=== PATIENT | male | born 1990 ===

== ENCOUNTER 2017-01-09 12:39 | Emergency (ER) | payer MEDICARE, OTHER ==
[2017-01-09 13:00] VITALS: BP 131/80; PULSE 83; RESP 16; TEMP 98.7; O2SAT 97
[2017-01-09] MEDS ORDERED: Tmp-Smz 800 mg-160 mg DS Tab PO STA (13:05)
[2017-01-09] MEDS ORDERED: Bacitracin 500 Units/gm Oint Foilpak UD TOP ONE (13:05)
[2017-01-09] MEDS ORDERED: Bacitracin 500 Units/gm Oint Foilpak UD ONE (13:07)
--- NOTE | 2017-01-09 13:08 | C.PDOC ---
History Of Present Illness 26 y/o male presents to ED with c/o pain and swelling to the right thumb for 2 days. Denies fever, chills, new numbness or weakness, injury, trauma, or other complaints. Time Seen by Provider: 01/09/17 12:55 Chief Complaint (Nursing): Abnormal Skin Integrity History Per: Patient History/Exam Limitations: no limitations Onset/Duration Of Symptoms: Days (2) Current Symptoms Are (Timing): Still Present Location Of Injury: Right: Hand Quality Of Symptoms: Painful, Swollen. denies: Draining Recent travel outside of the [place]: No Past Medical History Reviewed: Historical Data, Nursing Documentation, Vital Signs Vital Signs: Last Vital Signs Temp 98.7 F 01/09/17 12:46 Pulse 83 01/09/17 12:46 Resp 16 01/09/17 12:46 BP 131/80 01/09/17 12:46 Pulse Ox 97 01/09/17 13:42 Family History: States: Unknown Family Hx - Social History Hx Alcohol Use: No Hx Substance Use: No - Immunization History Hx Tetanus Toxoid Vaccination: No Hx Influenza Vaccination: No Hx Pneumococcal Vaccination: Yes Review Of Systems Except As Marked, All Systems Reviewed And Found Negative. Constitutional: Negative for: Fever, Chills Musculoskeletal: Negative for: Hand Pain Skin: Positive for: Lesions (redness and pain near right thumb nail) Neurological: Negative for: Weakness, Numbness Physical Exam - Physical Exam Appears: Non-toxic, No Acute Distress Skin: Normal Color, Warm, Dry Head: Atraumatic, Normacephalic Extremity: Normal ROM, No Tenderness, Capillary Refill (< 2 sec.), No Deformity , Other (erythema, fluctuance, swelling, tenderness to lateral right thumb nail border ) Pulses: Left Radial: Normal, Right Radial: Normal Neurological/Psych: Oriented x3, Normal Speech, Normal Cognition, Normal Motor, Normal Sensation ED Course And Treatment O2 Sat by Pulse Oximetry: 97 (RA) Pulse Ox Interpretation: Normal Medical Decision Making Medical Decision Making: Progress: I&D: Needle aspiration, pus drained, culture collected and sent to lab. Bacitracin applied and dressing placed. Advised follow up with PMD within 1-2 days and to take antibiotics as directed. Disposition Counseled Patient/Family Regarding: Need For Followup, Rx Given - Disposition Referrals: Adria Kilpatrick MD [Staff Provider] - Disposition: HOME/ ROUTINE Disposition Time: 13:39 Condition: STABLE Additional Instructions: Please give antibiotic twice a day keep area clean and dry follow up with your doctor in few days for wound check Prescriptions: Sulfamethoxazole/Trimethoprim [Bactrim DS 800 mg-160 mg] 1 tab PO BID #14 tab Instructions: Paronychia (ED) - POA Present On Arrival: None - Clinical Impression Clinical Impression: Paronychia - PA / [employer] / Resident Statement MD/DO has reviewed & agrees with the documentation as recorded. - Scribe Statement The provider has reviewed the documentation as recorded by the Scribe Toi Mata All medical record entries made by the Dino were at my direction and personally dictated by me. I have reviewed the chart and agree that the record accurately reflects my personal performance of the history, physical exam, medical decision making, and the department course for this patient. I have also personally directed, reviewed, and agree with the discharge instructions and disposition.
== END 2017-01-09 13:47 | disposition home or self-care (01) ==
LOC: C.ER 12:39
DX: L03.011 Cellulitis of right finger (principal); B95.62 Methicillin resistant Staphylococcus aureus infection as the cause of diseases classified elsewhere

== ENCOUNTER 2017-09-02 11:21 | Emergency (ER) | payer MEDICARE, OTHER ==
[2017-09-02 11:43] VITALS: RESP 18
--- NOTE | 2017-09-02 12:43 | C.PDOC ---
History Of Present Illness 27 y/o male with history of mental challenged brought to ED by mother with complaints of right foot swelling since yesterday. As per mother patient told her he was injured while playing basketball and was noted to be limping today which prompted visit to ED. As per mother patient denies other injury, numbness or any other complaint at this time. Time Seen by Provider: 09/02/17 11:51 Chief Complaint (Nursing): Lower Extremity Problem/Injury History Per: Family History/Exam Limitations: physical impairment Onset/Duration Of Symptoms: Days Current Symptoms Are (Timing): Still Present - Ankle/Foot Description Of Injury: Twisted Past Medical History Reviewed: Historical Data, Nursing Documentation, Vital Signs Vital Signs: Last Vital Signs Temp 99 F 09/02/17 13:00 Pulse 77 09/02/17 13:00 Resp 18 09/02/17 13:00 BP 93/57 L 09/02/17 13:00 Pulse Ox 99 09/02/17 14:09 - Medical History PMH: No Chronic Diseases Surgical History: No Surg Hx Family History: States: No Known Family Hx - Social History Hx Alcohol Use: No Hx Substance Use: No - Immunization History Hx Tetanus Toxoid Vaccination: No Hx Influenza Vaccination: No Hx Pneumococcal Vaccination: Yes Review Of Systems Eyes: Negative for: Vision Change Gastrointestinal: Negative for: Vomiting Musculoskeletal: Positive for: Foot Pain Skin: Negative for: Rash Neurological: Negative for: Weakness, Numbness Physical Exam - Physical Exam Appears: Non-toxic, No Acute Distress Skin: Normal Color, Warm, Dry, No Diaphoretic, No Pale, No Rash Head: Atraumatic, Normacephalic Eye(s): bilateral: Normal Inspection Neck: Normal ROM, Supple Chest: Symmetrical Extremity: Normal ROM, Tenderness (nonfocal tenderness to right ankle and forefoot), No Calf Tenderness, No Deformity, Swelling (Mild swelling to right lateral ankle) Extremity: Bilateral: Normal ROM Pulses: Left Dorsalis Pedis: Normal, Right Dorsalis Pedis: Normal Neurological/Psych: Oriented x3, Normal Motor, Normal Sensation ED Course And Treatment O2 Sat by Pulse Oximetry: 99 (RA) Pulse Ox Interpretation: Normal - Other Rad Right foot X-Ray: Viewed By Me, Read By Radiologist Interpretation: PROCEDURE: Right Foot Radiographs. HISTORY: pain and swelling s.p twisting injury. COMPARISON: None. FINDINGS: BONES: No cortical fracture. A 1 x 2.4 mm hyperdensity projects within the plantar soft tissues just medial to the 4th metatarsal head. A radiopaque foreign body is suspect. A piece broken needle is 1 consideration. Clinical correlation needed. Os peroneum noted. JOINTS: Normal. SOFT TISSUES: Soft tissue swelling medial mid and hindfoot region most notably is also some dorsal and plantar soft tissue swelling over the metatarsals. OTHER FINDINGS: None. IMPRESSION: No fracture appreciated. Soft tissue swelling as above. Plantar soft tissue foreign body -piece of broken needle 1 consideration. Correlation with history needed Medical Decision Making Medical Decision Making: Impression: Right ankle and foot injury Plan: Right foot/ankle xray Xrays viewed by me showing no acute fracture or dislocation. Mustapha bandage applied by RN. Re-Eval: Patient remained well and in no distress. Discussed results with patient and caregiver. recommend rest, ice to area and ibuprofen. Disposition Counseled Patient/Family Regarding: Diagnosis, Need For Followup, Rx Given - Disposition Referrals: Lara Schofield MD [Staff Provider] - Disposition: HOME/ ROUTINE Disposition Time: 12:49 Condition: GOOD Additional Instructions: Your xray was normal, no fracture. Please apply ice to area 15 minutes three times a day. Take Tylenol or Motrin as needed for pain every 6 hours, with food to not upset stomach. Follow up with orthopedic if pain persists over one week. Instructions: Ankle Sprain Forms: [facility] (Bulgarian) - POA Present On Arrival: None - Clinical Impression Clinical Impression: Ankle sprain - PA / CAND[employer] P[employer]ER / Resident Statement MD/DO has reviewed & agrees with the documentation as recorded. - Scribe Statement The provider has reviewed the documentation as recorded by the Dino Valdovinos All medical record entries made by the Dino were at my direction and personally dictated by me. I have reviewed the chart and agree that the record accurately reflects my personal performance of the history, physical exam, medical decision making, and the department course for this patient. I have also personally directed, reviewed, and agree with the discharge instructions and disposition.
[2017-09-02 13:01] VITALS: BP 93/57; PULSE 77; TEMP 99
[2017-09-02 13:07] VITALS: O2SAT 99
--- NOTE | 2017-09-02 13:07 | RAD ---
PROCEDURE: Right Foot Radiographs. HISTORY: pain and swelling s.p twisting injury COMPARISON: None. FINDINGS: BONES: No cortical fracture. A 1 x 2.4 mm hyperdensity projects within the plantar soft tissues just medial to the 4th metatarsal head. A radiopaque foreign body is suspect. A piece broken needle is 1 consideration. Clinical correlation needed. Os peroneum noted JOINTS: Normal. SOFT TISSUES: Soft tissue swelling medial mid and hindfoot region most notably is also some dorsal and plantar soft tissue swelling over the metatarsals. OTHER FINDINGS: None. IMPRESSION: No fracture appreciated. Soft tissue swelling as above. Plantar soft tissue foreign body -piece of broken needle 1 consideration. Correlation with history needed
--- NOTE | 2017-09-02 13:08 | RAD ---
PROCEDURE: Right Ankle Radiographs. HISTORY: pain and swelling s.p twisting injury COMPARISON: None FINDINGS: BONES: . No fracture. Os peroneum JOINTS: Normal. No osteoarthritis. Ankle mortise maintained. Talar dome intact SOFT TISSUES: Soft tissue swelling midfoot-hindfoot. OTHER FINDINGS: None. IMPRESSION: Soft tissue swelling midfoot-hindfoot. No fracture appreciated
== END 2017-09-02 13:05 | disposition home or self-care (01) ==
LOC: C.ER 11:21
DX: S93.401A Sprain of unspecified ligament of right ankle, initial encounter (principal); Y93.67 Activity, basketball

== ENCOUNTER 2018-03-29 12:35 | Inpatient (IN) | payer MEDICARE, OTHER ==
[2018-03-29 12:43] VITALS: BMI 28.3
[2018-03-29] MEDS ORDERED: Sodium Chloride 0.9% 1,000 ML IV ONE ×2 (12:54→14:49)
[2018-03-29] MEDS ORDERED: Sodium Chloride 0.9% 1,000 ML ONE ×2 (13:28→16:19)
[2018-03-29 13:34] LABS: BASO # 0.2 K/uL (0.0-0.2); EOS % 0.1 % (0.0-4.0); HEMOGLOBIN 13.6 g/dL (12.0-18.0); LYMPH # 0.3 K/uL (1.0-4.3); LYMPH % 1.8 % (20.0-40.0); MEAN CELL VOLUME 87.9 fL (80.0-94.0); MEAN CORPUSCULAR HEMOGLOBIN 29.2 pg (27.0-31.0); MEAN CORPUSCULAR HGB CONC 33.2 g/dL (33.0-37.0); MEAN PLATELET VOLUME 7.7 fL (7.2-11.7); MONO # 0.6 K/uL (0.0-0.8); MONO % 3.2 % (0.0-10.0); NEUT # 16.1 K/uL (1.8-7.0); NEUT % 93.9 % (50.0-75.0); NRBC % 0.1 % (0.0-2.0); PLATELET COUNT 277 K/uL (130-400); RBC 4.66 Mil/uL (4.40-5.90); RED CELL DISTRIBUTION WIDTH 15.3 % (11.5-14.5); WHITE BLOOD COUNT 17.1 K/uL (4.8-10.8)
[2018-03-29 13:38] LABS: VENOUS BLOOD GAS BASE EXCESS 1.5 mmol/L (0.0-2.0); VENOUS BLOOD GAS PCO2 49 mmHg (40-60); VENOUS BLOOD GAS PO2 16 mm/Hg (30-55); VENOUS BLOOD PH 7.36 (7.32-7.43)
[2018-03-29 13:39] LABS: SQUAMOUS EPITHIAL < 1 /hpf (0-5); URINE BILIRUBIN NEGATIVE (NEGATIVE); URINE BLOOD NEGATIVE (NEGATIVE); URINE CLARITY Hazy (Clear); URINE COLOR Amber (YELLOW); URINE GLUCOSE (UA) NORMAL (Normal); URINE LEUKOCYTE ESTERASE NEG Leu/uL (Negative); URINE PROTEIN 2+ mg/dL (NEGATIVE); URINE UROBILINOGEN NORMAL mg/dL (0.2-1.0)
--- NOTE | 2018-03-29 13:40 | RAD ---
HISTORY: SOB COMPARISON: None available. TECHNIQUE: Chest PA and lateral FINDINGS: LUNGS: Hypoinflation. Mild pulmonary venous congestion versus vascular crowding. Please note that chest x-ray has limited sensitivity for the detection of pulmonary masses. PLEURA: No significant pleural effusion identified. No definite pneumothorax . CARDIOVASCULAR: The cardiomediastinal silhouette appears within normal limits of size. OSSEOUS STRUCTURES: No acute osseous abnormality identified. VISUALIZED UPPER ABDOMEN: Unremarkable. OTHER FINDINGS: None. IMPRESSION: Hypoinflation. Mild pulmonary venous congestion versus vascular crowding.
[2018-03-29 13:41] LABS: INR 1.3; PROTHROMBIN TIME 14.6 SECONDS (9.7-12.2)
--- NOTE | 2018-03-29 13:43 | C.PDOC ---
Addendum entered and electronically signed by Martha Anderson PA 03/29/18 17:11: Addendum Addendum: 03/29/18 17:11 CT HEAD: IMPRESSION: No acute intracranial pathology identified. Original Note: History Of Present Illness 28 yo male , hx of Down syndrome, brought to ED by mother for evaluation of fever developed since today AM. As per mom, " he was at home with my other son, was told, he woke up this AM felling dizzy, was sweating, looks like he is going to pass out". Otherwise, mom denies any recent illness, denies actual LOC or syncope, pt at present time c/o mild headache only. Otherwise, denies sore throat, dizziness at present time, cough, CP, SOB, denies abd. pain, V/D, UTi sx. Appears comfortable, not in any apparent distress. Mom denies recent travel or known sick contact. <Martha Anderson - Last Filed: 03/29/18 17:11> History Per: Patient, Family <Martha Anderson - Last Filed: 03/29/18 17:11> <Dominga Choudhary - Last Filed: 04/02/18 05:19> Time Seen by Provider: 03/29/18 12:43 Chief Complaint (Nursing): Dizziness/Lightheaded Past Medical History Reviewed: Historical Data, Nursing Documentation, Vital Signs Vital Signs: Last Vital Signs Temp 101 F H 03/29/18 13:30 Pulse 114 H 03/29/18 12:43 Resp 18 03/29/18 12:43 BP 128/78 03/29/18 12:43 Pulse Ox 100 03/29/18 12:43 - Medical History Other PMH: Down syndrome Family History: States: Unknown Family Hx - Social History Hx Tobacco Use: No Hx Alcohol Use: No Hx Substance Use: No - Immunization History Hx Tetanus Toxoid Vaccination: No Hx Influenza Vaccination: No Hx Pneumococcal Vaccination: Yes <Martha Anderson - Last Filed: 03/29/18 17:11> Vital Signs: Last Vital Signs Temp 99.2 F 04/02/18 00:00 Pulse 88 04/02/18 00:00 Resp 20 04/02/18 00:00 BP 118/77 04/02/18 00:00 Pulse Ox 97 04/02/18 00:00 <Dominga Choudhary - Last Filed: 04/02/18 05:19> Review Of Systems Except As Marked, All Systems Reviewed And Found Negative. Constitutional: Positive for: Fever Eyes: Negative for: Vision Change ENT: Negative for: Nose Discharge, Nose Congestion, Throat Pain Cardiovascular: Positive for: Light Headedness. Negative for: Chest Pain, Palpitations, Edema Respiratory: Negative for: Cough, Shortness of Breath, Sputum, Wheezing Gastrointestinal: Negative for: Nausea, Vomiting, Abdominal Pain, Diarrhea Genitourinary: Negative for: Dysuria Skin: Negative for: Rash Neurological: Positive for: Headache, Dizziness. Negative for: Weakness, Numbness, Altered Mental Status <Martha Anderson - Last Filed: 03/29/18 17:11> Physical Exam - Physical Exam Appears: Well, Non-toxic, No Acute Distress Skin: Normal Color, Warm, Dry, No Rash Head: Normacephalic Eye(s): bilateral: PERRL Ear(s): Bilateral: Normal Nose: No Flaring, No Discharge Oral Mucosa: Moist, No Drooling Tongue: Normal Appearing Lips: Normal Appearing Throat: No Erythema, No Drooling Neck: Normal ROM, Trachea Midline, Supple, Other ((-) meningeal sign) Cardiovascular: Rhythm Regular, No JVD Respiratory: No Decreased Breath Sounds, No Accessory Muscle Use, No Stridor, No Wheezing Gastrointestinal/Abdominal: Soft, No Tenderness, No Distention, No Guarding, No Rebound Back: No CVA Tenderness Extremity: Normal ROM, No Deformity, No Swelling Neurological/Psych: Oriented x3, Normal Speech <Martha Anderson - Last Filed: 03/29/18 17:11> ED Course And Treatment - Laboratory Results Result Diagrams: 03/29/18 13:24 03/29/18 13:24 Lab Interpretation: Abnormal ECG: Interpreted By Me, Viewed By Me ECG Rhythm: Sinus Tachycardia ECG Interpretation: Normal Interpretation Of ECG: Sinus tachy@105/min, NAD, no acute T wave or ST-T changes O2 Sat by Pulse Oximetry: 100 Pulse Ox Interpretation: Normal - Other Rad CXR X-Ray: Read By Radiologist Interpretation: IMPRESSION: Hypoinflation. Mild pulmonary venous congestion versus vascular crowding. Progress Note: Pt was OBS in ED for 2 hours and remained unchanged. on re-ev aluation, fever went up to 102, pt is tachy, but remains asymptomatic, denies CP, SOB, dyspnea, cough, abd. pain, N/V/D. Blood work review, acute leukocytosis with left shift. UA- normal study. CXR (+) mild pulm venous congestion. Influenza (-). case discussed with ED attending and admission re commend, since fever is not improving, no obvious source of infection, pt has underlying pathology, hx of Down syndrome. case discussed with pt's PMD and admission arranged to OBS reg. floor. results review and discussed with motherbryon with plan. <Martha Anderson - Last Filed: 03/29/18 17:11> - Laboratory Results Result Diagrams: 04/01/18 07:40 04/01/18 07:40 <Dominga Choudhary - Last Filed: 04/02/18 05:19> Disposition - Disposition Disposition Time: 14:48 <Martha Anderson - Last Filed: 03/29/18 17:11> <Dominga Choudhary - Last Filed: 04/02/18 05:19> - Disposition Disposition: HOSPITALIZED Condition: STABLE - Clinical Impression Clinical Impression: Fever, Down syndrome - PA / HAND FLESHER / Resident Statement / has reviewed & agrees with the documentation as recorded. <Dominga Choudhary - Last Filed: 04/02/18 05:19>
[2018-03-29] MEDS ORDERED: Azithromycin 500 MG in Sodium Chloride 0.9% 250 ML IVPB STA (13:49)
[2018-03-29 13:51] LABS: ALT/SGPT 43 U/L (21-72); AST/SGOT 26 U/L (17-59); BLOOD UREA NITROGEN 15 mg/dL (9-20); CALCIUM 8.9 mg/dl (8.6-10.4); GFR NON-AFRICAN AMERICAN > 60
[2018-03-29 13:57] LABS: BANDS 1 % (0-2); LYMPHOCYTE 1 % (20-40); MONOCYTE 3 % (0-10); NEUTROPHIL 95 % (50-75); PLATELET ESTIMATE NORMAL (NORMAL); TOTAL CELLS COUNTED 100
[2018-03-29] MEDS ORDERED: Azithromycin 500mg/250ML NS 500 MG/250 ML BAG IVPB ONE (14:07)
[2018-03-29] MEDS ORDERED: cefTRIAXone 1 gm 1 GM/100 ML BAG IVPB ONE (14:07)
--- NOTE | 2018-03-29 16:42 | CT ---
Date of service: 03/29/2018 PROCEDURE: CT HEAD WITHOUT CONTRAST. HISTORY: headache, fever COMPARISON: None available. TECHNIQUE: Axial computed tomography images were obtained through the head/brain without intravenous contrast. Radiation dose: Total exam DLP = 1118.44 mGy-cm. This CT exam was performed using one or more of the following dose reduction techniques: Automated exposure control, adjustment of the mA and/or kV according to patient size, and/or use of iterative reconstruction technique. FINDINGS: HEMORRHAGE: No intracranial hemorrhage. BRAIN: No mass effect or edema. No atrophy or chronic microvascular ischemic changes.Please note that MRI with diffusion imaging is more sensitive in the detection of acute ischemic event. VENTRICLES: No hydrocephalus. CALVARIUM: Unremarkable. PARANASAL SINUSES: Unremarkable as visualized. No significant inflammatory changes. MASTOID AIR CELLS: No significant inflammatory changes. OTHER FINDINGS: None. IMPRESSION: No acute intracranial pathology identified.
[2018-03-29 18:14] VITALS: RESP 20
[2018-03-29] MEDS: Sodium Chloride 0.9% 1,000 ML IV SCH (22:15)
[2018-03-30 06:50] LABS: BASO # 0.1 K/uL (0.0-0.2); BASO % 0.4 % (0.0-2.0); HEMOGLOBIN 13.1 g/dL (12.0-18.0); LYMPH # 0.7 K/uL (1.0-4.3); LYMPH % 3.9 % (20.0-40.0); MEAN CELL VOLUME 86.9 fL (80.0-94.0); MEAN CORPUSCULAR HGB CONC 33.4 g/dL (33.0-37.0); MEAN PLATELET VOLUME 7.7 fL (7.2-11.7); MONO # 0.9 K/uL (0.0-0.8); MONO % 4.9 % (0.0-10.0); NEUT # 16.1 K/uL (1.8-7.0); NEUT % 90.8 % (50.0-75.0); NRBC % 0.1 % (0.0-2.0); PLATELET COUNT 239 K/uL (130-400); RBC 4.53 Mil/uL (4.40-5.90); RED CELL DISTRIBUTION WIDTH 15.6 % (11.5-14.5); WHITE BLOOD COUNT 17.8 K/uL (4.8-10.8)
[2018-03-30] MEDS: Sodium Chloride 0.9% 1,000 ML IV SCH ×3 (07:30→17:15)
[2018-03-30 07:58] LABS: BLOOD UREA NITROGEN 13 mg/dL (9-20); CALCIUM 8.5 mg/dl (8.6-10.4); GFR NON-AFRICAN AMERICAN > 60
[2018-03-30 08:26] LABS: BANDS 9 % (0-2); BASOPHIL 1 % (0-2); LYMPHOCYTE 6 % (20-40); MONOCYTE 2 % (0-10); NEUTROPHIL 82 % (50-75); PLATELET ESTIMATE NORMAL (NORMAL); TOTAL CELLS COUNTED 100
[2018-03-30] MEDS: Enoxaparin 30 mg Syringe SC SCH (09:49)
[2018-03-30] MEDS ORDERED: Potassium Chloride 20 mEq/15 ml LIQ UD PO ONE (10:00)
--- NOTE | 2018-03-30 13:19 | CARD ---
APPROVED REPORT Date of service: 03/29/2018 EKG Measurement Heart [id number] ID [id number] <Conclusion> Sinus tachycardia Otherwise normal ECG
[2018-03-30] MEDS: Azithromycin 500 MG in Sodium Chloride 0.9% 250 ML IVPB SCH (14:41)
--- NOTE | 2018-03-30 22:16 | CP.PCM.HP ---
Past Patient History - Infectious Disease Hx of Infectious Diseases: None - Past Medical History & Family History Past Medical History?: Yes - Past Social History Smoking Status: Never Smoked - CARDIAC Hx Cardiac Disorders: No - PULMONARY Hx Respiratory Disorders: No - NEUROLOGICAL Hx Neurological Disorder: Yes Other/Comment: DOWN SYNDROME - HEENT Hx HEENT Problems: Yes Other/Comment: EAR TUBES - RENAL Hx Chronic Kidney Disease: No - ENDOCRINE/METABOLIC Hx Endocrine Disorders: No - HEMATOLOGICAL/ONCOLOGICAL Hx Blood Disorders: No - INTEGUMENTARY Hx Dermatological Problems: No - MUSCULOSKELETAL/RHEUMATOLOGICAL Hx Musculoskeletal Disorders: No Hx Falls: No - GASTROINTESTINAL Hx Gastrointestinal Disorders: No - GENITOURINARY/GYNECOLOGICAL Hx Genitourinary Disorders: No - PSYCHIATRIC Hx Psychophysiologic Disorder: No Hx Substance Use: No - SURGICAL HISTORY Hx Surgeries: Yes Other/Comment: EAR TUBES - ANESTHESIA Hx Anesthesia: Yes Hx Anesthesia Reactions: No Hx Malignant Hyperthermia: No Has any member of the family had a problem w/ anesthesia?: No Meds Allergies/Adverse Reactions: Allergies Allergy/AdvReac Type Severity Reaction Status Date / Time No Known Allergies Allergy Verified 03/29/18 12:43 Results - Vital Signs Recent Vital Signs: Last Vital Signs Temp 101 F H 03/30/18 17:07 Pulse 124 H 03/30/18 16:00 Resp 20 03/30/18 16:00 BP 106/56 L 03/30/18 16:00 Pulse Ox 99 03/30/18 16:00 - Labs Result Diagrams: 03/30/18 06:39 03/30/18 06:39 Labs: Laboratory Results - last 24 hr 03/30/18 03/30/18 06:39 06:39 WBC 17.8 H RBC 4.53 Hgb 13.1 Hct 39.4 MCV 86.9 MCH 29.0 MCHC 33.4 RDW 15.6 H Plt Count 239 MPV 7.7 Neut % (Auto) 90.8 H Lymph % (Auto) 3.9 L Sullivan % (Auto) 4.9 Eos % (Auto) 0.0 Baso % (Auto) 0.4 Neut # (Auto) 16.1 H Lymph # (Auto) 0.7 L Sullivan # (Auto) 0.9 H Eos # (Auto) 0.0 Baso # (Auto) 0.1 Neutrophils % (Manual) 82 H Band Neutrophils % 9 H Lymphocytes % (Manual) 6 L Monocytes % (Manual) 2 Basophils % (Manual) 1 Platelet Estimate Normal Sodium 139 Potassium 3.4 L Chloride 104 Carbon Dioxide 24 Anion Gap 15 BUN 13 Creatinine 1.1 Est GFR ( Amer) > 60 Est GFR (Non-Af Amer) > 60 Random Glucose 122 H Calcium 8.5 L
--- NOTE | 2018-03-30 22:51 | CP.PCM.CON ---
History of Present Illness - History of Present Illness History of Present Illness: INFECTIOUS DISEASE CONSULT; HPI; 28-year-old male with Down syndrome, history of bronchitis, and history of pneumonias 2 years ago was brought in by family for evaluation of fever of 102.9 while at home. Patient as stated by her was sweating and looks like he is going to pass out. But she denies any loss of consciousness or syncope. CT head performed showed no intracranial hemorrhage or pathology. Chest x-ray on admission was unremarkable. As per mother patient was complaining of some right flank pain a few days prior to this fever. Denies any abdominal pain present. Patient denies any nausea vomiting, diarrhea or obstipation. Denies any dysuria or hematuria. Patient presently denies any headache or any seizure disorder. Mom presently reports no recent sick contacts or recent travel. Infectious disease consultation requested by PMD for elevated fevers and sepsis. pATIENT WAS STARTED ON BROAD-SPECTRUM ANTIBIOTICS NOTED. PATIENT PRESENTLY COMFORTABLE AND AMBULATED BY HIMSELF BACK TO HIS BED AND CHAIR FROM THE BATHROOM. PMH: Down syndrome, BRONCHITIS, HX OF PNEUMONIA Family History: States: Unknown Family Hx - Social History . LIVES WITH MOTHER/AND BROTHER. Hx Tobacco Use: No Hx Alcohol Use: No Hx Substance Use: No - Immunization History Hx Tetanus Toxoid Vaccination: No Hx Influenza Vaccination: No Hx Pneumococcal Vaccination: Yes Review of Systems - Constitutional Constitutional: Fever, Headache Additional comments: INCREASED SWEATING WHILE HAVING HIGH FEVER. - EENT Ears: absent: Ear Pain Nose/Mouth/Throat: absent: Sinus Pressure, Dental Pain, Mouth Lesions, Odynophagia, Sore Throat, Neck Pain - Cardiovascular Cardiovascular: absent: Chest Pain - Respiratory Respiratory: absent: Cough, Excessive Mucous Production - Gastrointestinal Gastrointestinal: Abdominal Pain (.). absent: Change in Bowel Habits, Constipation, Loose Stools, Nausea - Genitourinary Genitourinary: absent: Dysuria, Hematuria, Freq UTI - Neurological Neurological: absent: Abnormal Gait, Focal Weakness - Hematologic/Lymphatic Hematologic: As Per HPI. absent: Lymphadenopathy Past Patient History - Infectious Disease Hx of Infectious Diseases: None - Past Medical History & Family History Past Medical History?: Yes - Past Social History Smoking Status: Never Smoked - CARDIAC Hx Cardiac Disorders: No - PULMONARY Hx Respiratory Disorders: No - NEUROLOGICAL Hx Neurological Disorder: Yes Other/Comment: DOWN SYNDROME - HEENT Hx HEENT Problems: Yes Other/Comment: EAR TUBES - RENAL Hx Chronic Kidney Disease: No - ENDOCRINE/METABOLIC Hx Endocrine Disorders: No - HEMATOLOGICAL/ONCOLOGICAL Hx Blood Disorders: No - INTEGUMENTARY Hx Dermatological Problems: No - MUSCULOSKELETAL/RHEUMATOLOGICAL Hx Musculoskeletal Disorders: No Hx Falls: No - GASTROINTESTINAL Hx Gastrointestinal Disorders: No - GENITOURINARY/GYNECOLOGICAL Hx Genitourinary Disorders: No - PSYCHIATRIC Hx Psychophysiologic Disorder: No Hx Substance Use: No - SURGICAL HISTORY Hx Surgeries: Yes Other/Comment: EAR TUBES - ANESTHESIA Hx Anesthesia: Yes Hx Anesthesia Reactions: No Hx Malignant Hyperthermia: No Has any member of the family had a problem w/ anesthesia?: No Meds Allergies/Adverse Reactions: Allergies Allergy/AdvReac Type Severity Reaction Status Date / Time No Known Allergies Allergy Verified 03/29/18 12:43 - Medications Medications: Current Medications Acetaminophen (Tylenol 325mg Tab) 650 mg PO Q6 PRN PRN Reason: Fever >100.4 F Last Admin: 03/30/18 16:07 Dose: 650 mg Enoxaparin Sodium (Lovenox) 30 mg SC 1000 NEGIN Last Admin: 03/30/18 09:49 Dose: 30 mg Ceftriaxone Sodium 1 gm/ (Sodium Chloride) 100 mls @ 100 mls/hr IVPB DAILY NEGIN; Protocol Last Admin: 03/30/18 09:48 Dose: 100 mls/hr Azithromycin 500 mg/ Sodium (Chloride) 250 mls @ 250 mls/hr IVPB Q24H NEGIN; Protocol Last Admin: 03/30/18 14:41 Dose: 250 mls/hr Sodium Chloride (Sodium Chloride 0.9%) 1,000 mls @ 100 mls/hr IV .Q10H NEGIN Last Admin: 03/30/18 17:15 Dose: Not Given Influenza Virus Vaccine (Fluzone Quad [id number]) 60 mcg IM .ONCE ONE Stop: 04/01/18 10:01 Pantoprazole Sodium (Protonix Ec Tab) 40 mg PO DAILY NEGIN Pneumococcal Polyvalent Vaccine (Pneumovax 23 Vaccine) 0.5 ml IM .ONCE ONE Stop: 03/31/18 10:01 Physical Exam - Constitutional Appears: No Acute Distress - Head Exam Head Exam: NORMAL INSPECTION - Eye Exam Eye Exam: EOMI, PERRL - Neck Exam Neck exam: Positive for: Normal Inspection. Negative for: Lymphadenopathy, Meningismus - Respiratory Exam Respiratory Exam: Clear to Auscultation Bilateral - Cardiovascular Exam Cardiovascular Exam: REGULAR RHYTHM, +S1, +S2 - GI/Abdominal Exam GI & Abdominal Exam: Normal Bowel Sounds, Soft. absent: Organomegaly - Extremities Exam Extremities exam: Positive for: pedal pulses present. Negative for: calf tenderness, pedal edema - Back Exam Back exam: absent: CVA tenderness (L), CVA tenderness (R) - Neurological Exam Neurological exam: Alert, CN II-XII Intact, Normal Gait, Oriented x3, Reflexes Normal - Psychiatric Exam Psychiatric exam: Normal Mood - Skin Skin Exam: Normal Color, Warm Results - Vital Signs Recent Vital Signs: Last Vital Signs Temp 99.2 F 03/30/18 22:20 Pulse 124 H 03/30/18 16:00 Resp 20 03/30/18 16:00 BP 106/56 L 03/30/18 16:00 Pulse Ox 99 03/30/18 16:00 - Labs Result Diagrams: 03/31/18 06:45 03/31/18 06:45 Labs: Laboratory Results - last 24 hr 03/30/18 03/30/18 06:39 06:39 WBC 17.8 H RBC 4.53 Hgb 13.1 Hct 39.4 MCV 86.9 MCH 29.0 MCHC 33.4 RDW 15.6 H Plt Count 239 MPV 7.7 Neut % (Auto) 90.8 H Lymph % (Auto) 3.9 L Drew % (Auto) 4.9 Eos % (Auto) 0.0 Baso % (Auto) 0.4 Neut # (Auto) 16.1 H Lymph # (Auto) 0.7 L Drew # (Auto) 0.9 H Eos # (Auto) 0.0 Baso # (Auto) 0.1 Neutrophils % (Manual) 82 H Band Neutrophils % 9 H Lymphocytes % (Manual) 6 L Monocytes % (Manual) 2 Basophils % (Manual) 1 Platelet Estimate Normal Sodium 139 Potassium 3.4 L Chloride 104 Carbon Dioxide 24 Anion Gap 15 BUN 13 Creatinine 1.1 Est GFR ( Amer) > 60 Est GFR (Non-Af Amer) > 60 Random Glucose 122 H Calcium 8.5 L - Imaging and Cardiology Chest x-ray Status: Report reviewed by me (NAD) Assessment & Plan (1) Fever Assessment and Plan: PANCULTURES UA /URINE CULTURES ESR CRP. cONTINUE iv ANTIBIOTICS IV rOCEPHIN 1 G ONCE A DAY DAILY 03/29/18/ iv zITHROMAX 500 MG EVERY 24 HOURLY 03/29/18. aDD iv VANCOMYCIN 1 G ONCE A DAY DAILY 03/30/18. fOLLOW-UP vANCO TROUGH PRIOR TO THE FOURTH DOSE AND KEEP BETWEEN 10 AND 20 G PER Ml. fOLLOW-UP CULTURES TO ADJUST ANTIBIOTICS. Status: Acute (2) Leukocytosis Assessment and Plan: FOLLOW-UP REPEAT cbc WITH DIFFERENTIAL IN A.M. oN iv ANTIBIOTICS. Status: Acute (3) Down syndrome Status: Acute
[2018-03-30] MEDS: Vancomycin 1 gm/NS 200 ml 1 GM/200 ML BAG IVPB SCH (23:53)
[2018-03-31] MEDS: Sodium Chloride 0.9% 1,000 ML IV SCH ×2 (03:10→14:19)
[2018-03-31 06:53] LABS: BASO # 0.1 K/uL (0.0-0.2); BASO % 0.6 % (0.0-2.0); EOS % 0.1 % (0.0-4.0); HEMOGLOBIN 12.7 g/dL (12.0-18.0); LYMPH # 1.3 K/uL (1.0-4.3); LYMPH % 9.2 % (20.0-40.0); MEAN CELL VOLUME 87.1 fL (80.0-94.0); MEAN CORPUSCULAR HEMOGLOBIN 29.1 pg (27.0-31.0); MEAN CORPUSCULAR HGB CONC 33.4 g/dL (33.0-37.0); MEAN PLATELET VOLUME 7.7 fL (7.2-11.7); MONO # 1.1 K/uL (0.0-0.8); MONO % 7.8 % (0.0-10.0); NEUT # 11.4 K/uL (1.8-7.0); NEUT % 82.3 % (50.0-75.0); NRBC % 0.1 % (0.0-2.0); PLATELET COUNT 200 K/uL (130-400); RBC 4.35 Mil/uL (4.40-5.90); RED CELL DISTRIBUTION WIDTH 15.7 % (11.5-14.5); WHITE BLOOD COUNT 13.9 K/uL (4.8-10.8)
[2018-03-31 08:01] LABS: ALB/GLOB RATIO 0.9 (1.0-2.1); ALBUMIN 3.3 g/dL (3.5-5.0); ALT/SGPT 57 U/L (21-72); AST/SGOT 42 U/L (17-59); BILIRUBIN,DIRECT 0.4 mg/dL (0.0-0.4); BLOOD UREA NITROGEN 8 mg/dL (9-20); CALCIUM 8.3 mg/dl (8.6-10.4); GFR NON-AFRICAN AMERICAN > 60
--- NOTE | 2018-03-31 08:08 | HP ---
CHIEF COMPLAINT: Fever. HISTORY OF PRESENT ILLNESS: This is a 28-year-old male with history of Down syndrome with no other residual deficits. The patient is in his usual state of health. He is ambulatory. He lives with his mother and recently has . The patient was seen in the emergency room because of fever. He denies any cough, sore throat, or running nose. He denies any sneezing or itchy eyes. Denies any muscle pain, headache, or dizziness. He denies any chest pain. He has left upper quadrant abdominal pain. No nausea, vomiting, or diarrhea. He denies any dysuria, hematuria, or pyuria. He denies any skin rash or skin lesions. He denies any history of sneezing, itchy eyes, or itchy nose. He denies any history of trauma, fall, or loss of consciousness. He gets lightheaded. PAST MEDICAL HISTORY: Down syndrome. SOCIAL HISTORY: Nonsmoker, non ETOH user. CURRENT MEDICATIONS: None. PHYSICAL EXAMINATION: GENERAL: A young male, in no acute distress. VITAL SIGNS: Blood pressure 128/78, pulse 114, respiratory rate 18, temperature 101. SKIN: Normal turgor. Diaphoretic. HEENT: Atraumatic, normocephalic. Negative pallor. Negative jaundice. Extraocular movements are intact. NECK: Supple. No JVD. No lymph nodes. No thyromegaly. No carotid bruits. CHEST WALL: Bilaterally symmetrical expansion. LUNGS: Clear. No rales. No rhonchi. CARDIOVASCULAR SYSTEM: S1 and S2, regular. ABDOMEN: Soft, nontender. Bowel sounds are positive. RECTAL: Negative. EXTREMITIES: No clubbing, cyanosis, or edema. CENTRAL NERVOUS SYSTEM: The patient is awake, alert. The patient cannot talk. Moves all extremities. ASSESSMENT: 1. Fever, rule out septicemia. Could be gastroenteritis, viral syndrome. 2. Dehydration. PLAN: Admit. Detailed order written. Seen and examined. Adria Kilpatrick MD
[2018-03-31 08:36] LABS: BANDS 4 % (0-2); LYMPHOCYTE 8 % (20-40); MONOCYTE 6 % (0-10); NEUTROPHIL 82 % (50-75); PLATELET ESTIMATE NORMAL (NORMAL); TOTAL CELLS COUNTED 100
[2018-03-31 08:47] LABS: ERYTHROCYTE SEDIMENTATION RATE 70 mm/hr (0-15)
[2018-03-31] MEDS ORDERED: Pneumococcal 23-Valent Vaccine IM ONE (10:00)
[2018-03-31] MEDS: Enoxaparin 30 mg Syringe SC SCH (11:44)
[2018-03-31] MEDS: Pantoprazole 40 mg EC Tab PO SCH (11:45)
[2018-03-31] MEDS: Azithromycin 500 MG in Sodium Chloride 0.9% 250 ML IVPB SCH (14:16)
[2018-03-31] MEDS ORDERED: Sodium Chloride Nasal 0.65% Soln (30ml) NAS PRN (14:47)
--- NOTE | 2018-03-31 21:53 | CP.PCM.PN ---
Subjective - Subjective Subjective: dictated Objective - Vital Signs/Intake and Output Vital Signs (last 24 hours): Temp Pulse Resp BP Pulse Ox 98.4 F 103 H 20 115/63 96 03/31/18 16:42 03/31/18 16:42 03/31/18 16:42 03/31/18 16:42 03/31/18 16:42 - Medications Medications: Current Medications Acetaminophen (Tylenol 325mg Tab) 650 mg PO Q6 PRN PRN Reason: Fever >100.4 F Last Admin: 03/31/18 00:02 Dose: 650 mg Enoxaparin Sodium (Lovenox) 30 mg SC 1000 NEGIN Last Admin: 03/31/18 11:44 Dose: 30 mg Ceftriaxone Sodium 1 gm/ (Sodium Chloride) 100 mls @ 100 mls/hr IVPB DAILY NEGIN; Protocol Last Admin: 03/31/18 11:26 Dose: 100 mls/hr Azithromycin 500 mg/ Sodium (Chloride) 250 mls @ 250 mls/hr IVPB Q24H NEGIN; Protocol Last Admin: 03/31/18 14:16 Dose: 250 mls/hr Vancomycin/Sodium Chloride (Vancomycin 1 Gm/Ns 200 Ml) 1 gm in 200 mls @ 133 mls/hr IVPB Q24H NEGIN; Protocol Stop: 04/04/18 23:01 Last Admin: 03/30/18 23:53 Dose: 133 mls/hr Influenza Virus Vaccine (Fluzone Quad [id number]) 60 mcg IM .ONCE ONE Stop: 04/01/18 10:01 Pantoprazole Sodium (Protonix Ec Tab) 40 mg PO DAILY NEGIN Last Admin: 03/31/18 11:45 Dose: 40 mg Sodium Chloride ([place] Baby Saline 30 Ml) 0 ml NABIL Q4H PRN PRN Reason: Dry nasal passages - Labs Labs: 03/31/18 06:45 03/31/18 06:45 PT 14.6 SECONDS (9.7-12.2) H 03/29/18 13:24 INR 1.3 03/29/18 13:24 APTT 29 SECONDS (21-34) 03/29/18 13:24
[2018-03-31] MEDS: Vancomycin 1 gm/NS 200 ml 1 GM/200 ML BAG IVPB SCH (22:05)
--- NOTE | 2018-03-31 23:52 | CP.PCM.PN ---
Subjective - Date & Time of Evaluation Date of Evaluation: 03/31/18 Time of Evaluation: 23:51 - Subjective Subjective: CHIEF COMPLAINTS TODAY : TEMP DOWN. OFFERS NO NEW COMPLAINTS. DENIES HEADACHE DENIES COUGH OR SHORTNESS OF BREATH. ROS. HEENT : N. Resp : No cough, wheezing ,pleuritic CP ,or hemoptysis Cardio : No anginal CP, PND, orthopnea, palpitation GI : No abd.pain, n/v ,diarrhea or GI bleeding . COREMAKER PIPE : No headache, vertigo, focal deficit. Musculoskel : No joint swelling , Derm : No rash Psych : Normal affect. Ext : No swelling ,calf pain PE. Pt. is alert awake in no distress. V.S As noted in the chart Head ,ear nose,throat and eyes : Normal. Neck : Supple with normal carotids. Lungs: Clear air entry. Heart : S1 & S2 normal with S4. No murmur. Abd : Soft non tender with normal bowel sounds. Neuro : Moves all ext. with no localized deficit. Ext : No edema with intact pulses.Non tender calves Derm : No rashes or decubitus ulcer. LABS/RADIOLOGY: wbc 13.9 IMPROVING ESR 70 CRP 239.20 HIGH . /PLAN : Objective - Vital Signs/Intake and Output Vital Signs (last 24 hours): Temp Pulse Resp BP Pulse Ox 98.4 F 103 H 20 115/63 96 03/31/18 16:42 03/31/18 16:42 03/31/18 16:42 03/31/18 16:42 03/31/18 16:42 Intake and Output: 03/31/18 04/01/18 18:59 06:59 Intake Total 500 Balance 500 - Medications Medications: Current Medications Acetaminophen (Tylenol 325mg Tab) 650 mg PO Q6 PRN PRN Reason: Fever >100.4 F Last Admin: 03/31/18 00:02 Dose: 650 mg Enoxaparin Sodium (Lovenox) 30 mg SC 1000 NEGIN Last Admin: 03/31/18 11:44 Dose: 30 mg Ceftriaxone Sodium 1 gm/ (Sodium Chloride) 100 mls @ 100 mls/hr IVPB DAILY NEGIN; Protocol Last Admin: 03/31/18 11:26 Dose: 100 mls/hr Azithromycin 500 mg/ Sodium (Chloride) 250 mls @ 250 mls/hr IVPB Q24H NEGIN; Protocol Last Admin: 03/31/18 14:16 Dose: 250 mls/hr Vancomycin/Sodium Chloride (Vancomycin 1 Gm/Ns 200 Ml) 1 gm in 200 mls @ 133 mls/hr IVPB Q24H NEGIN; Protocol Stop: 04/04/18 23:01 Last Admin: 03/31/18 22:05 Dose: 133 mls/hr Influenza Virus Vaccine (Fluzone Quad [id number]) 60 mcg IM .ONCE ONE Stop: 04/01/18 10:01 Pantoprazole Sodium (Protonix Ec Tab) 40 mg PO DAILY [facility] Last Admin: 03/31/18 11:45 Dose: 40 mg Sodium Chloride ([place] Baby Saline 30 Ml) 0 ml NABIL Q4H PRN PRN Reason: Dry nasal passages - Labs Labs: 03/31/18 06:45 03/31/18 06:45 PT 14.6 SECONDS (9.7-12.2) H 03/29/18 13:24 INR 1.3 03/29/18 13:24 APTT 29 SECONDS (21-34) 03/29/18 13:24 Assessment and Plan (1) Fever Assessment & Plan: BLOOD CULTURES 10 TO NEGATIVE FOR 48 HOURS uRINE CULTURE < 1000CFU/ML. SOURCE OF FEVER NOT CLEAR. US ABDOMEN /KIDNEY R/O CHOLELITHIASIS VERSUS RENAL CYST SPECIAL ATTENTION RIGHT UPPER QUADRANT. CONTINUE iv ANTIBIOTICS IV ROCEPHIN 1 G ONCE A DAY DAILY 03/29/18/ iv ZITHROMAX 500 MG EVERY 24 HOURLY 03/29/18. aDD iv VANCOMYCIN 1 G ONCE A DAY DAILY 03/30/18. fOLLOW-UP vANCO TROUGH PRIOR TO THE FOURTH DOSE AND KEEP BETWEEN 10 AND 20 G PER Ml. fOLLOW-UP CULTURES TO ADJUST ANTIBIOTICS. Status: Acute (2) Leukocytosis Assessment & Plan: wbc IMPROVING 13.9. oN ANTIBIOTICS. Status: Acute (3) Down syndrome Assessment & Plan: CASE DISCUSSED WITH FAMILY MOTHER AND FATHER WHO WERE AT THE BEDSIDE. Status: Acute
[2018-04-01 08:17] LABS: BASO # 0.1 K/uL (0.0-0.2); BASO % 0.9 % (0.0-2.0); EOS # 0.1 K/uL (0.0-0.7); EOS % 1.3 % (0.0-4.0); HEMOGLOBIN 12.8 g/dL (12.0-18.0); LYMPH # 1.4 K/uL (1.0-4.3); LYMPH % 17.4 % (20.0-40.0); MEAN CELL VOLUME 87.9 fL (80.0-94.0); MEAN CORPUSCULAR HEMOGLOBIN 29.7 pg (27.0-31.0); MEAN CORPUSCULAR HGB CONC 33.8 g/dL (33.0-37.0); MEAN PLATELET VOLUME 8.2 fL (7.2-11.7); MONO # 0.9 K/uL (0.0-0.8); MONO % 11.5 % (0.0-10.0); NEUT # 5.4 K/uL (1.8-7.0); NEUT % 68.9 % (50.0-75.0); NRBC % 0.1 % (0.0-2.0); RBC 4.32 Mil/uL (4.40-5.90); WHITE BLOOD COUNT 7.8 K/uL (4.8-10.8)
[2018-04-01 08:26] LABS: BLOOD UREA NITROGEN 9 mg/dL (9-20); CALCIUM 8.7 mg/dl (8.6-10.4); GFR NON-AFRICAN AMERICAN > 60
[2018-04-01] MEDS ORDERED: Influenza Vaccine 60 MCG/0.5 ML SYR (3 yr & up) IM ONE (10:00)
--- NOTE | 2018-04-01 10:02 | PN ---
DATE: 03/31/2018 SUBJECTIVE: The patient, Joel Gil, responded to vancomycin. He now complains of sore throat. He is afebrile. PHYSICAL EXAMINATION: VITAL SIGNS: BP 115/63, pulse 103, respiratory rate 20, temperature 98.4. LUNGS: Clear. CVS: S1 and S2, regular. ABDOMEN: Soft. ASSESSMENT: 1. Most likely tonsillitis with fever. 2. Down syndrome. PLAN: Continue current medication. Monitor patient. Adria Kilpatrick MD
[2018-04-01] MEDS: Pantoprazole 40 mg EC Tab PO SCH (10:09)
[2018-04-01] MEDS: Enoxaparin 30 mg Syringe SC SCH (10:09)
--- NOTE | 2018-04-01 10:15 | US ---
Date of service: 04/01/2018 HISTORY: RT FLANK PAIN R/O GBD VS RENAL ABSCESS/CYST COMPARISON: None. TECHNIQUE: Sonographic evaluation of the abdomen. FINDINGS: LIVER: Measures 20.69 cm. Heterogeneously increased echogenicity of the liver parenchyma. No definitive mass. No intrahepatic bile duct dilatation. GALLBLADDER: Unremarkable. No gallstones. COMMON BILE DUCT: Measures 3.4 mm. No stones. No dilatation. PANCREAS: The tail of the pancreas is obscured by overlying bowel gas with remainder unremarkable. RIGHT KIDNEY: Measures 11.1cm. Normal echogenicity. No calculus, mass, or hydronephrosis. LEFT KIDNEY: Measures 10.1cm. Normal echogenicity. No calculus, mass, or hydronephrosis. SPLEEN: Normal in size and contour. No mass. AORTA: No aneurysmal dilatation. IVC: Unremarkable. OTHER FINDINGS: None. IMPRESSION: Hepatic steatosis. Borderline hepatomegaly. Partial imaging of the pancreas with remainder the examination unremarkable appearing.
[2018-04-01] MEDS: Azithromycin 500 MG in Sodium Chloride 0.9% 250 ML IVPB SCH (13:59)
--- NOTE | 2018-04-01 20:09 | CP.PCM.PN ---
Subjective - Date & Time of Evaluation Date of Evaluation: 04/01/18 Time of Evaluation: 20:09 - Subjective Subjective: CHIEF COMPLAINTS TODAY : TEMP DOWN. OFFERS NO NEW COMPLAINTS. oob on chair mother at bedside. ROS. HEENT : N. Resp : No cough, wheezing ,pleuritic CP ,or hemoptysis Cardio : No anginal CP, PND, orthopnea, palpitation GI : No abd.pain, n/v ,diarrhea or GI bleeding . SECURITIES SETTLEMENT PROCESSOR : No headache, vertigo, focal deficit. Musculoskel : No joint swelling , Derm : No rash Psych : Normal affect. Ext : No swelling ,calf pain PE. Pt. is alert awake in no distress. V.S As noted in the chart Head ,ear nose,throat and eyes : Normal. Neck : Supple with normal carotids. Lungs: Clear air entry. Heart : S1 & S2 normal with S4. No murmur. Abd : Soft non tender with normal bowel sounds. Neuro : Moves all ext. with no localized deficit. Ext : No edema with intact pulses.Non tender calves Derm : No rashes or decubitus ulcer. LABS/RADIOLOGY: wbc 7.8IMPROVING ESR 70 CRP 239.20 HIGH pro-calcitonin high Vanco trough 6.2 low ( on 1 g every 24 hourly ) all cultures negative to date. . /PLAN : increase IV vancomycin 1 g every 12 hourly. Continue IV Rocephin 1 g every 24 hourly. Continue Zithromax 500 mg every 24 hourly. will follow ultrasound of the abdomen. Objective - Vital Signs/Intake and Output Vital Signs (last 24 hours): Temp Pulse Resp BP Pulse Ox 98.4 F 83 20 109/63 97 04/01/18 16:00 04/01/18 16:00 04/01/18 16:00 04/01/18 16:00 04/01/18 16:00 Intake and Output: 04/01/18 04/02/18 18:59 06:59 Intake Total 700 Balance 700 - Medications Medications: Current Medications Acetaminophen (Tylenol 325mg Tab) 650 mg PO Q6 PRN PRN Reason: Fever >100.4 F Last Admin: 03/31/18 00:02 Dose: 650 mg Enoxaparin Sodium (Lovenox) 30 mg SC 1000 NEGIN Last Admin: 04/01/18 10:09 Dose: 30 mg Ceftriaxone Sodium 1 gm/ (Sodium Chloride) 100 mls @ 100 mls/hr IVPB DAILY NEGIN; Protocol Last Admin: 04/01/18 10:09 Dose: 100 mls/hr Azithromycin 500 mg/ Sodium (Chloride) 250 mls @ 250 mls/hr IVPB Q24H NEGIN; Protocol Last Admin: 04/01/18 13:59 Dose: 250 mls/hr Vancomycin/Sodium Chloride (Vancomycin 1 Gm/Ns 200 Ml) 1 gm in 200 mls @ 133 mls/hr IVPB Q24H NEGIN; Protocol Stop: 04/04/18 23:01 Last Admin: 03/31/18 22:05 Dose: 133 mls/hr Pantoprazole Sodium (Protonix Ec Tab) 40 mg PO DAILY NEGIN Last Admin: 04/01/18 10:09 Dose: 40 mg Sodium Chloride ([place] Baby Saline 30 Ml) 0 ml NAIBL Q4H PRN PRN Reason: Dry nasal passages - Labs Labs: 04/01/18 07:40 04/01/18 07:40 PT 14.6 SECONDS (9.7-12.2) H 03/29/18 13:24 INR 1.3 03/29/18 13:24 APTT 29 SECONDS (21-34) 03/29/18 13:24 Assessment and Plan (1) Fever Status: Acute (2) Leukocytosis Status: Acute (3) Down syndrome Status: Acute
[2018-04-01] MEDS: Vancomycin 1 gm/NS 200 ml 1 GM/200 ML BAG IVPB SCH (22:18)
--- NOTE | 2018-04-01 23:30 | CP.PCM.PN ---
Subjective - Subjective Subjective: dictated Objective - Vital Signs/Intake and Output Vital Signs (last 24 hours): Temp Pulse Resp BP Pulse Ox 98.4 F 83 20 109/63 97 04/01/18 16:00 04/01/18 16:00 04/01/18 16:00 04/01/18 16:00 04/01/18 16:00 Intake and Output: 04/01/18 04/02/18 18:59 06:59 Intake Total 700 350 Balance 700 350 - Medications Medications: Current Medications Acetaminophen (Tylenol 325mg Tab) 650 mg PO Q6 PRN PRN Reason: Fever >100.4 F Last Admin: 03/31/18 00:02 Dose: 650 mg Enoxaparin Sodium (Lovenox) 30 mg SC 1000 NEGIN Last Admin: 04/01/18 10:09 Dose: 30 mg Ceftriaxone Sodium 1 gm/ (Sodium Chloride) 100 mls @ 100 mls/hr IVPB DAILY NEGIN; Protocol Last Admin: 04/01/18 10:09 Dose: 100 mls/hr Azithromycin 500 mg/ Sodium (Chloride) 250 mls @ 250 mls/hr IVPB Q24H NEGIN; Protocol Last Admin: 04/01/18 13:59 Dose: 250 mls/hr Vancomycin/Sodium Chloride (Vancomycin 1 Gm/Ns 200 Ml) 1 gm in 200 mls @ 133 mls/hr IVPB Q24H NEGIN; Protocol Stop: 04/04/18 23:01 Last Admin: 04/01/18 22:18 Dose: 133 mls/hr Pantoprazole Sodium (Protonix Ec Tab) 40 mg PO DAILY NEGIN Last Admin: 04/01/18 10:09 Dose: 40 mg Sodium Chloride ([place] Baby Saline 30 Ml) 0 ml NABIL Q4H PRN PRN Reason: Dry nasal passages - Labs Labs: 04/01/18 07:40 04/01/18 07:40 PT 14.6 SECONDS (9.7-12.2) H 03/29/18 13:24 INR 1.3 03/29/18 13:24 APTT 29 SECONDS (21-34) 03/29/18 13:24
[2018-04-02 09:13] VITALS: BP 141/67; PULSE 65; TEMP 98.2; O2SAT 96
[2018-04-02] MEDS: Enoxaparin 30 mg Syringe SC SCH (10:37)
[2018-04-02] MEDS: Pantoprazole 40 mg EC Tab PO SCH (10:37)
[2018-04-02 10:48] LABS: BASO # 0.1 K/uL (0.0-0.2); BASO % 1.2 % (0.0-2.0); EOS # 0.1 K/uL (0.0-0.7); EOS % 2.2 % (0.0-4.0); HEMOGLOBIN 13.2 g/dL (12.0-18.0); LYMPH # 1.6 K/uL (1.0-4.3); MEAN CELL VOLUME 88.1 fL (80.0-94.0); MEAN CORPUSCULAR HGB CONC 32.9 g/dL (33.0-37.0); MEAN PLATELET VOLUME 8.4 fL (7.2-11.7); MONO # 0.5 K/uL (0.0-0.8); MONO % 7.8 % (0.0-10.0); NEUT # 4.3 K/uL (1.8-7.0); NEUT % 64.8 % (50.0-75.0); NRBC % 0.1 % (0.0-2.0); RBC 4.55 Mil/uL (4.40-5.90); RED CELL DISTRIBUTION WIDTH 15.9 % (11.5-14.5); WHITE BLOOD COUNT 6.6 K/uL (4.8-10.8)
[2018-04-02 11:50] LABS: ALBUMIN 3.6 g/dL (3.5-5.0); BLOOD UREA NITROGEN 14 mg/dL (9-20); GFR NON-AFRICAN AMERICAN > 60
[2018-04-02 11:51] LABS: ALB/GLOB RATIO 0.9 (1.0-2.1); ALT/SGPT 62 U/L (21-72); AST/SGOT 40 U/L (17-59)
[2018-04-02] MEDS: Azithromycin 500 MG in Sodium Chloride 0.9% 250 ML IVPB SCH (13:58)
--- NOTE | 2018-04-02 15:39 | CP.PCM.PN ---
Subjective - Date & Time of Evaluation Date of Evaluation: 04/02/18 Time of Evaluation: 15:39 Objective - Vital Signs/Intake and Output Vital Signs (last 24 hours): Temp Pulse Resp BP Pulse Ox 98.2 F 65 20 141/67 96 04/02/18 08:00 04/02/18 08:00 04/02/18 08:00 04/02/18 08:00 04/02/18 08:00 Intake and Output: 04/02/18 04/02/18 06:59 18:59 Intake Total 350 1560 Balance 350 1560 - Medications Medications: Current Medications Acetaminophen (Tylenol 325mg Tab) 650 mg PO Q6 PRN PRN Reason: Fever >100.4 F Last Admin: 03/31/18 00:02 Dose: 650 mg Enoxaparin Sodium (Lovenox) 30 mg SC 1000 NEGIN Last Admin: 04/02/18 10:37 Dose: 30 mg Ceftriaxone Sodium 1 gm/ (Sodium Chloride) 100 mls @ 100 mls/hr IVPB DAILY NEGIN; Protocol Last Admin: 04/02/18 10:37 Dose: 100 mls/hr Azithromycin 500 mg/ Sodium (Chloride) 250 mls @ 250 mls/hr IVPB Q24H NEGIN; Protocol Last Admin: 04/02/18 13:58 Dose: 250 mls/hr Vancomycin HCl 1,000 mg/ (Sodium Chloride) 200 mls @ 133.333 mls/hr IVPB Q12H NEGIN; Protocol Last Admin: 04/02/18 12:02 Dose: 133.333 mls/hr Pantoprazole Sodium (Protonix Ec Tab) 40 mg PO DAILY NEGIN Last Admin: 04/02/18 10:37 Dose: 40 mg Sodium Chloride ([place] Baby Saline 30 Ml) 0 ml NABIL Q4H PRN PRN Reason: Dry nasal passages - Labs Labs: 04/02/18 10:22 04/02/18 10:22 PT 14.6 SECONDS (9.7-12.2) H 03/29/18 13:24 INR 1.3 03/29/18 13:24 APTT 29 SECONDS (21-34) 03/29/18 13:24 Assessment and Plan - Assessment and Plan (Free Text) Assessment: FOLLOW UP WITH DR HIGH IN 1 -2 WEEK AT HIS OFFICE ---CALL FOR APPOINTMENT FOLLOW UP WITH DR PEREZ IN HER OFFICE ---CALL FOR APPOINTMENT CONTINUE HOME MEDICATION IF ANY NEW PRESCRIPTION GIVEN BY PMD ON CHART ACTIVITY TOLERATED CALL DR HIGH OR GO TO THE EMERGENCY ROOM IF SYMPTOM RETURN OR WORSENING
--- NOTE | 2018-04-02 22:08 | CP.PCM.DIS ---
Provider - Provider Date of Admission: 03/30/18 18:42 Attending physician: Adria Kilpatrick MD Hospital Course - Lab Results Lab Results: Micro Results 03/29/18 13:35 Blood Blood Culture - Preliminary NO GROWTH AFTER 4 DAYS 03/29/18 13:35 Blood Blood Culture - Preliminary NO GROWTH AFTER 4 DAYS 03/31/18 04:33 Naris MRSA Culture (Admit) - Final MRSA NOT DETECTED 03/29/18 13:24 Urine Urine Culture - Final No Growth (<1,000 CFU/ML) Most Recent Lab Values WBC 6.6 K/uL (4.8-10.8) 04/02/18 10:22 RBC 4.55 Mil/uL (4.40-5.90) 04/02/18 10:22 Hgb 13.2 g/dL (12.0-18.0) 04/02/18 10:22 Hct 40.1 % (35.0-51.0) 04/02/18 10:22 MCV 88.1 fL (80.0-94.0) 04/02/18 10:22 MCH 29.0 pg (27.0-31.0) 04/02/18 10:22 MCHC 32.9 g/dL (33.0-37.0) L 04/02/18 10:22 RDW 15.9 % (11.5-14.5) H 04/02/18 10:22 Plt Count 275 K/uL (130-400) 04/02/18 10:22 MPV 8.4 fL (7.2-11.7) 04/02/18 10:22 Neut % (Auto) 64.8 % (50.0-75.0) 04/02/18 10:22 Lymph % (Auto) 24.0 % (20.0-40.0) 04/02/18 10:22 [place] % (Auto) 7.8 % (0.0-10.0) 04/02/18 10:22 Eos % (Auto) 2.2 % (0.0-4.0) 04/02/18 10:22 Baso % (Auto) 1.2 % (0.0-2.0) 04/02/18 10:22 Neut # (Auto) 4.3 K/uL (1.8-7.0) 04/02/18 10:22 Lymph # (Auto) 1.6 K/uL (1.0-4.3) 04/02/18 10:22 [place] # (Auto) 0.5 K/uL (0.0-0.8) 04/02/18 10:22 Eos # (Auto) 0.1 K/uL (0.0-0.7) 04/02/18 10:22 Baso # (Auto) 0.1 K/uL (0.0-0.2) 04/02/18 10:22 Neutrophils % (Manual) 82 % (50-75) H 03/31/18 06:45 Band Neutrophils % 4 % (0-2) H 03/31/18 06:45 Lymphocytes % (Manual) 8 % (20-40) L 03/31/18 06:45 Monocytes % (Manual) 6 % (0-10) 03/31/18 06:45 Basophils % (Manual) 1 % (0-2) 03/30/18 06:39 Platelet Estimate Normal (NORMAL) 03/31/18 06:45 ESR 70 mm/hr (0-15) H 03/31/18 06:45 PT 14.6 SECONDS (9.7-12.2) H 03/29/18 13:24 INR 1.3 03/29/18 13:24 APTT 29 SECONDS (21-34) 03/29/18 13:24 pO2 16 mm/Hg (30-55) L 03/29/18 01:33 VBG pH 7.36 (7.32-7.43) 03/29/18 01:33 VBG pCO2 49 mmHg (40-60) 03/29/18 01:33 VBG HCO3 24.0 mmol/L 03/29/18 01:33 VBG Total CO2 29.2 mmol/L (22-28) H 03/29/18 01:33 VBG O2 Sat (Calc) 25.2 % (40-65) L 03/29/18 01:33 VBG Base Excess 1.5 mmol/L (0.0-2.0) 03/29/18 01:33 VBG Potassium 3.7 mmol/L (3.6-5.2) 03/29/18 01:33 Sodium 137.0 mmol/l (132-148) 03/29/18 01:33 Chloride 102.0 mmol/L (98-107) 03/29/18 01:33 Glucose 135 mg/dl (75-110) H 03/29/18 01:33 Lactate 2.0 mmol/L (0.7-2.1) 03/29/18 01:33 Sodium 142 mmol/L (132-148) 04/02/18 10:22 Potassium 4.3 mmol/L (3.6-5.2) 04/02/18 10:22 Chloride 100 mmol/L (98-107) 04/02/18 10:22 Carbon Dioxide 28 mmol/L (22-30) 04/02/18 10:22 Anion Gap 18 (10-20) 04/02/18 10:22 BUN 14 mg/dL (9-20) 04/02/18 10:22 Creatinine 0.9 mg/dL (0.8-1.5) 04/02/18 10:22 Est GFR ( Amer) > 60 04/02/18 10:22 Est GFR (Non-Af Amer) > 60 04/02/18 10:22 POC Glucose (mg/dL) 182 mg/dL (65-110) H 03/29/18 12:44 Random Glucose 71 mg/dL (75-110) L 04/02/18 10:22 Calcium 9.0 mg/dl (8.6-10.4) 04/02/18 10:22 Total Bilirubin 0.3 mg/dL (0.2-1.3) 04/02/18 10:22 Direct Bilirubin 0.4 mg/dL (0.0-0.4) 03/31/18 06:45 AST 40 U/L (17-59) 04/02/18 10:22 ALT 62 U/L (21-72) 04/02/18 10:22 Alkaline Phosphatase 153 U/L (38-126) H D 04/02/18 10:22 C-Reactive Protein 239.20 mg/L (0.0-9.9) H 03/31/18 06:45 Total Protein 7.6 g/dL (6.3-8.3) 04/02/18 10:22 Albumin 3.6 g/dL (3.5-5.0) 04/02/18 10:22 Globulin 4.0 gm/dL (2.2-3.9) H 04/02/18 10:22 Albumin/Globulin Ratio 0.9 (1.0-2.1) L 04/02/18 10:22 Procalcitonin 0.91 NG/ML (0.19-0.49) H 03/31/18 06:45 Venous Blood Potassium 3.7 mmol/L (3.6-5.2) 03/29/18 01:33 Urine Color Ghazal (YELLOW) 03/29/18 13:24 Urine Clarity Hazy (Clear) 03/29/18 13:24 Urine pH 6.0 (5.0-8.0) 03/29/18 13:24 Ur Specific [place] 1.021 (1.003-1.030) 03/29/18 13:24 Urine Protein 2+ mg/dL (NEGATIVE) H 03/29/18 13:24 Urine Glucose (UA) Normal mg/dL (Normal) 03/29/18 13:24 Urine Ketones Trace mg/dL (NEGATIVE) 03/29/18 13:24 Urine Blood Negative (NEGATIVE) 03/29/18 13:24 Urine Nitrate Negative (NEGATIVE) 03/29/18 13:24 Urine Bilirubin Negative (NEGATIVE) 03/29/18 13:24 Urine Urobilinogen Normal mg/dL (0.2-1.0) 03/29/18 13:24 Ur Leukocyte Esterase Neg Agata/uL (Negative) 03/29/18 13:24 Urine WBC (Auto) 3 /hpf (0-5) 03/29/18 13:24 Urine RBC (Auto) 1 /hpf (0-3) 03/29/18 13:24 Ur Squamous Epith Cells < 1 /hpf (0-5) 03/29/18 13:24 Vancomycin Trough 6.2 ug/mL (5.0-10.0) 04/01/18 07:40 Influenza Typ A,B (EIA) Negative for flu a/b (NEGATIVE) 03/29/18 13:24 Discharge Exam - Head Exam Head Exam: NORMAL INSPECTION Discharge Plan - Discharge Medications Prescriptions: Clindamycin [Cleocin] 300 mg PO Q6H #20 cap - Follow Up Plan Condition: STABLE Disposition: HOME/ ROUTINE Instructions: Leukocytosis (DC), Leukocytosis (GEN) Additional Instructions: FOLLOW UP WITH DR KILPATRICK IN 1 -2 WEEK AT HIS OFFICE ---CALL FOR APPOINTMENT FOLLOW UP WITH DR PEREZ IN HER OFFICE ---CALL FOR APPOINTMENT CONTINUE HOME MEDICATION IF ANY NEW PRESCRIPTION GIVEN BY PMD ON CHART ACTIVITY TOLERATED CALL DR KILPATRICK OR GO TO THE EMERGENCY ROOM IF SYMPTOM RETURN OR WORSENING Referrals: Adria Kilpatrick MD [Staff Provider] -
--- NOTE | 2018-04-04 10:04 | DS ---
DISCHARGE DIAGNOSES: 1. Tonsillitis. 2. Down syndrome. HOSPITAL COURSE: This is a 28-year-old male with a history of Down syndrome. He came in because of fever, chills, and rigor. Fever with elevated WBC count. The patient did not respond to initial antibiotic therapy and vancomycin was added. Later on, the patient's family did recognize that he was complaining of some sore throat. The patient has difficulty expressing and making his needs known. The patient did well with vancomycin and he is for discharge. The patient will go home on clindamycin. PHYSICAL EXAMINATION: VITAL SIGNS: Blood pressure 141/67, pulse 65, respiratory rate 20, and temperature 98.2. PLAN: Discharge the patient. Adria Kilpatrick MD
--- NOTE | 2018-04-05 07:10 | PN ---
DATE: 04/01/2018 SUBJECTIVE: The patient, Joel Gil, is afebrile. PHYSICAL EXAMINATION: VITAL SIGNS: Blood pressure 109/63, pulse 88, respiratory rate 20, temperature 98.4. LUNGS: Clear. CARDIOVASCULAR SYSTEM: S1 and S2, regular. ABDOMEN: Soft. ASSESSMENT: 1. Tonsillitis. 2. Down syndrome. 3. Dehydration. PLAN: Discharge the patient in a.. Adria Kilpatrick MD
[2018-04-05 14:14] LABS: HETEROPHILE MONO SCREEN Negative (Negative)
== END 2018-04-02 16:35 | disposition home or self-care (01) | DRG 153 ==
LOC: C.ER 12:35 → C.9E 14:48 → C.3T 16:45 → OBSVTOIN 03-30 18:42
PROVIDERS: ADMIT Internal Medicine; ATTEND Internal Medicine
DX: J03.90 Acute tonsillitis, unspecified (principal); E86.0 Dehydration; Q90.9 Down syndrome, unspecified